=== PATIENT | female | born 1965 | race Caucasian/White ===

== ENCOUNTER 2022-07-25 17:59 | Emergency (ER) | payer OTHER ==
[~2022-07-25] VITALS: Ht 160 cm; Wt 70.0 kg
[2022-07-25 18:10] VITALS: BP 136/68
[2022-07-25] MEDS: IBUPROFEN 400MG TABLET PO ONE (20:45)
[2022-07-25 22:15] LABS: BASOPHILS % 0.5 % (0.0-2.0); EOSINOPHILS % 1.6 % (0.0-5.0); HEMATOCRIT. 43.1 % (36.0-48.0); HEMOGLOBIN. 14.2 g/dL (12.0-16.0); LYMPHOCYTES % 42.7 % (20.0-50.0); MEAN CORPUSCULAR HEMOGLOBIN 29.8 pg (28.0-32.0); MEAN CORPUSCULAR VOLUME 90.5 fL (81.0-99.0); MEAN PLATELET VOLUME 9.7 fl (7.4-10.4); MONOCYTES % 7.8 % (2.0-8.0); NEUTROPHILS % 47.4 % (40.0-76.0); PLATELET 263 x1000/uL (130-400); RED BLOOD CELL COUNT 4.77 mill/uL (4.2-5.4); RED CELL DISTRIBUTION WIDTH 13.2 % (11.6-14.6)
[2022-07-25 22:34] LABS: CHLORIDE 105 mEq/L (98-107)
[2022-07-26] MEDS ORDERED: IBUP-2028 MT (01:10)
== END 2022-07-26 01:40 | disposition home or self-care (01) ==
LOC: ER 17:59
DX: M54.50 Low back pain, unspecified (principal); R07.81 Pleurodynia; R94.31 Abnormal electrocardiogram [ECG] [EKG]; I49.9 Cardiac arrhythmia, unspecified; Z88.6 Allergy status to analgesic agent; Z88.5 Allergy status to narcotic agent; Z98.890 Other specified postprocedural states
CPT/HCPCS: 36415; 71046; 80053; 84484; 85025; 85379; 93005; 99285

== ENCOUNTER 2022-08-01 22:47 | Emergency (ER) | payer OTHER ==
[~2022-08-01] VITALS: Ht 167.6 cm; Wt 72.0 kg
[~2022-08-01 22:47] MED LIST: IBUP-2028 MT
[2022-08-01 23:38] VITALS: BP 138/66
== END 2022-08-02 04:32 | disposition left against medical advice (07) ==
LOC: ER 22:47
DX: Z53.21 Procedure and treatment not carried out due to patient leaving prior to being seen by health care provider (principal)
CPT/HCPCS: 93005